=== PATIENT | male | born 2005 | race Caucasian/White ===

== ENCOUNTER 2024-02-20 19:54 | Emergency (ER) | payer SELFPAY ==
[2024-02-20] VITALS (8 sets, daily range): BP systolic 128–149; BP diastolic 62–85; PULSE 80–102; RESP 16–31; TEMP 36.5; O2SAT 96–100
--- NOTE | 2024-02-20 22:51 | ED.ABDPAIN ---
HPI - Abdominal Pain General Chief Complaint: Abdominal Pain Stated Complaint: abd pain Time Seen by Provider: 02/20/24 22:48 History of Present Illness HPI narrative: Patient presents with nausea, diarrhea, chills, and lower abdominal discomfort for the past day, cannot remember what he may have eaten before this other than he was grilling some chicken. No recent travel or exposures that he is aware of, no recent antibiotic course. Related Data Allergies Allergy/AdvReac Type Severity Reaction Status Date / Time No Known Allergies Allergy Verified 02/20/24 20:13 Review of Systems Review of Systems: All systems reviewed & are unremarkable except as noted in HPI and below Exam Narrative: EXAMINATION OF ORGAN SYSTEMS/BODY AREAS: Constitutional: Vital signs per nursing GENERAL:[No acute distress, non-toxic appearing.] HEAD: Normal with no signs of head trauma. EYES: EOMI, conjunctiva normal ENT: Hearing grossly intact LUNGS: Nonlabored breathing. HEART: [Regular rate and rhythm] ABD: [Soft], [nontender to palpation] EXT: Normal range of motion SKIN: [No rashes or lesions.] NEURO: [Alert and oriented x 3. No gross focal sensory or strength deficits.] PSYCH: Normal affect Course Vital Signs Vital signs: Vital Signs Temperature 97.7 F 02/20/24 20:14 Pulse Rate 80 02/20/24 20:14 Respiratory Rate 16 02/20/24 20:14 Blood Pressure 135/76 02/20/24 20:14 Pulse Oximetry 100 02/20/24 20:14 Oxygen Delivery Room Air 02/20/24 20:14 Temperature 97.7 F 02/20/24 20:14 Pulse Rate 80 02/20/24 20:14 Respiratory Rate 16 02/20/24 20:14 Blood Pressure 135/76 02/20/24 20:14 Pulse Oximetry 100 02/20/24 20:14 Oxygen Delivery Room Air 02/20/24 20:14 MDM - Abdominal Pain MDM Narrative Medical decision making narrative: 18-year-old male presents with 1 day of fevers, nausea, diarrhea, abdominal cramping, he is overall well-appearing here, abdomen is soft nontender, no right lower quadrant tenderness. Given this a day consider possible appendicitis however this seems much less likely without any right lower quadrant tenderness or pain. Viral swabs obtained are negative, with this nausea, vomiting, diarrhea, I suspect most likely gastroenteritis, doubt any surgical emergency without tenderness and benign exam and no significant medical history. Medications provided, swabs obtained are negative, and on re-evaluation he states he does feel better, no longer nauseous, I will give him prescriptions for symptoms as well strict return precautions, he and girlfriend at bedside agreeable to this plan. Lab Data Labs: Lab Results 02/20/24 Range/Units 23:25 Influenza A (RT-PCR) Negative (Negative) Influenza B (RT-PCR) Negative (Negative) RSV (RT-PCR) Negative (Negative) SARS-CoV-2 RNA (RT-PCR) Negative (Negative) Discharge Plan Discharge Clinical Impression: Nausea, vomiting, and diarrhea, Abdominal cramping Patient Disposition: Home, Self-Care Condition: Stable Instructions: Antibiotic Form, Acute Nausea and Vomiting (ED), Acute Diarrhea (ED), Abdominal Pain (ED) Additional Instructions: You can continue taking ibuprofen and Tylenol at home for your symptoms, and take the Zofran and loperamide for your nausea and diarrhea, respectively. Make sure that you are keeping well hydrated. If your pain gets worse, especially if you start having pain to your right lower quadrant, or if you start having nausea vomiting and cannot keep anything down, please come back to the emergency room. Prescriptions: New ondansetron 4 mg tablet,disintegrating 4 mg PO Q8H PRN (Reason: nausea and vomiting) Qty: 10 0RF loperamide 2 mg tablet 2 mg PO Q6H PRN (Reason: loose stool) Qty: 14 0RF Follow-up/Referrals: Dixon Connolly MD [Physician] - 2 Days UNKNOWN,DOCTOR [Primary Care Provider] - Stand Alone Forms: Work/School Release IP
[2024-02-20] MEDS: ACETAMINOPHEN 500 MG TABLET 1000 MG PO (23:15)
[2024-02-20] MEDS: LOPERAMIDE HCL 2 MG CAPSULE 4 MG PO (23:15)
[2024-02-20] MEDS: ONDANSETRON HCL ODT 4 MG TABLET PO (23:15)
[2024-02-21] VITALS (7 sets, daily range): BP systolic 124–136; BP diastolic 60–77; PULSE 91–98; RESP 16–26; TEMP 36.6; O2SAT 98–100
[2024-02-21 00:09] LABS: Influenza A QL RT-PCR Negative (Negative); Influenza B QL RT-PCR Negative (Negative); RSV RNA, RT-PCR Negative (Negative); SARS-CoV-2 RNA PCR Negative (Negative)
== END 2024-02-21 00:56 | disposition home or self-care (01) ==
PROVIDERS: Emergency Provider Emergency Medicine
DX: R10.30 Lower abdominal pain, unspecified (principal); R11.2 Nausea with vomiting, unspecified; R19.7 Diarrhea, unspecified; Z20.822 Contact with and (suspected) exposure to COVID-19
CPT/HCPCS: 87637; 99283; A9270

== ENCOUNTER 2024-02-21 23:06 | Emergency (ER) | payer SELFPAY ==
--- NOTE | ~2024-02-21 | CT_ITS ---
CT of the Abdomen and Pelvis: Indication: Abdominal pain Technique: 2.5 mm axial scans were obtained through the abdomen and pelvis following intravenous adm inistration of 100 cc of Omnipaque 350. Dose reduction technique was used on this scan by utilizing a utomated exposure control and iterative reconstruction technique. The dose-length product (DLP) was 3 17.55 mGy-cm. Findings: Scans through the lung bases are unremarkable. The liver, spleen, pancreas, gallbladder, adrenals and kidneys are within normal limits. No evidence of aortic aneurysm. There is mild diffuse large bowel wall thickening including the rectum. No bowel obstruction or free air. Small bowel unremarkable. Appendix unremarkable. Shotty right lower quadrant lymph nodes noted. Images through the pelvis were performed. Urinary bladder unremarkable. No pelvic mass seen. 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 Impression: Diffuse large bowel wall thickening. Correlate for infectious/inflammatory colitis. Shotty right lower quadrant lymph nodes, presumably reactive. Reviewed, dictated and finalized at [facility]. Impression: Diffuse large bowel wall thickening. Correlate for infectious/inflammatory coli tis. Shotty right lower quadrant lymph nodes, presumably reactive.
[2024-02-21 23:24] VITALS: BP 126/70; PULSE 76; RESP 18; TEMP 36.6; O2SAT 100
--- NOTE | 2024-02-21 23:31 | ED.ABDPAIN ---
HPI - Abdominal Pain General Chief Complaint: Abdominal Pain Stated Complaint: abdominal pain, fever Time Seen by Provider: 02/21/24 23:10 Source: patient Mode of arrival: ambulatory Limitations: no limitations History of Present Illness HPI narrative: Patient is a 18 y/o male who presents to the ED with c/o right lower abdominal pain. Patient reports pain began yesterday and was initially present diffusely throughout his lower abdomen. Associated with nausea, vomiting, diarrhea, fevers, T-max 103F. Patient was seen in the ED yesterday for these symptoms, had negative viral swabs, was diagnosed with gastroenteritis, sent home with Zofran and Imodium. He states today, pain has become more localized to his right lower abdomen, which prompted his return. Reports persistent N/V/D/fevers. He last took ibuprofen 2 hours prior to arrival. Related Data Allergies Allergy/AdvReac Type Severity Reaction Status Date / Time No Known Allergies Allergy Verified 02/21/24 23:27 Review of Systems Review of Systems: All systems reviewed & are unremarkable except as noted in HPI. All systems reviewed & are unremarkable except as noted in HPI and below Exam Narrative: GENERAL: Well appearing, thin, non-toxic, in no acute distress. HEAD: Normocephalic, atraumatic. RESPIRATORY: Airway patent, respirations nonlabored. Clear to auscultation bilaterally, no rales, rhonchi, wheezing. CARDIOVASCULAR: Regular rate and rhythm without murmurs, rubs, or gallops. ABDOMINAL: Soft, mild tenderness in midline lower abdomen, left lower quadrant. No significant RLQ tenderness. Nondistended. Normoactive BS. MUSCULOSKELETAL: Moves all extremities. No gross deformities. SKIN: Warm, dry, normal color. NEURO: A&O X3. Speech clear. Cranial nerves II-XII grossly intact. Steady gait. No ataxic movements. PSYCHIATRIC: Appropriate mood and affect. Normal interaction. Course Vital Signs Vital signs: Vital Signs Temperature 97.8 F 02/21/24 23:24 Pulse Rate 76 02/21/24 23:24 Respiratory Rate 18 02/21/24 23:24 Blood Pressure 126/70 02/21/24 23:24 Pulse Oximetry 100 02/21/24 23:24 Oxygen Delivery Room Air 02/21/24 23:24 Temperature 97.8 F 02/21/24 23:37 Pulse Rate 76 02/21/24 23:37 Respiratory Rate 18 02/21/24 23:37 Blood Pressure 126/70 02/21/24 23:37 Pulse Oximetry 100 02/21/24 23:37 Oxygen Delivery Room Air 02/21/24 23:24 MDM - Abdominal Pain MDM Narrative Medical decision making narrative: Patient presented to ED with lower abdominal pain, seen in the ED yesterday, diagnosed with gastroenteritis. Had negative viral swabs. Vital signs are stable upon arrival today. Patient is afebrile here today. He did take Tylenol prior to arrival. CBC without leukocytosis. CMP with sodium of 133. Creatinine of 1.4. No records to compare to. Fluids ongoing. Total bilirubin elevated to 2.3. Again no records to compare to. Remainder of LFTs are within normal limits. Lipase within normal range. UA with 1+ ketones, no signs of infection. CT abd/pelvis obtained showed evidence of colitis. This is consistent with patient's clinical picture. Given recent fevers in the setting of colitis, will treat as infectious picture. Patient started on Augmentin. Given 1st dose in the ED. Will also discharge with Bentyl for home use. Advised patient have close follow-up with PCP for further evaluation. He was given return precautions. Discharged in stable condition. Medical Records Attestation: I reviewed the patient's medical records. Lab Data Attestation: I reviewed the patient's lab results. 02/21/24 23:32 02/21/24 23:32 Labs: Lab Results 02/21/24 Range/Units 23:32 WBC 6.0 (4.5-10.0) K/mm3 RBC 4.96 (4.6-6.20) M/mm3 Hgb 14.6 (14.0-18.0) g/dL Hct 42.2 (42.0-52.0) % MCV 85.1 (80-100) fl MCH 29.4 (26-34) pg MCHC 34.6 (32-36) g/dl RDW 12.0 (11.5-14.5) % Plt Count
[2024-02-21 23:37] VITALS: BP 126/70; PULSE 76; RESP 18; TEMP 36.6; O2SAT 100
[2024-02-21 23:43] LABS: Basophils Percent Auto 0.3 % (0.2-1.2); Eosinophils Absolute Auto 0.1 K/mm3 (0-0.3); Eosinophils Percent Auto 1.8 % (0-4.4); Hematocrit 42.2 % (42.0-52.0); Hemoglobin 14.6 g/dL (14.0-18.0); Immature Granulocyte Absolute 0.01 K/mm3 (0.00-0.031); Immature Granulocyte Percent A 0.2 % (0-0.5); Lymphocytes Absolute Auto 1.19 K/mm3 (0.9-3.2); Lymphocytes Percent Auto 19.7 % (18.3-44.2); Mean Corpuscular HGB Conc 34.6 g/dl (32-36); Mean Corpuscular Hemoglobin 29.4 pg (26-34); Mean Corpuscular Volume 85.1 fl (80-100); Mean Platelet Volume 9.4 fl (7.4-10.4); Monocytes Absolute Auto 0.6 K/mm3 (0.1-0.6); Neutrophils Absolute Auto 4.1 K/mm3 (1.3-6.7); Platelet Count Result 133 k/mm3 (150-375); Red Blood Count 4.96 M/mm3 (4.6-6.20)
[2024-02-21 23:50] LABS: Alanine Aminotransferase 21 U/L (6-50); Albumin Level 4.1 g/dL (3.5-5.1); Alkaline Phosphatase 98 U/L (38-126); Anion Gap 10 mmol/L (4-12); Aspartate Amino Transferase 28 U/L (17-59); Bilirubin,Total 2.3 mg/dL (0.2-1.3); Blood Urea Nitrogen 14 mg/dL (9-20); Carbon Dioxide 27 mmol/L (22-30); Chloride 96 mmol/L (98-107); Estimated CRCL calculation 85 ml/min; Estimated Glomerular Filt Rate > 60; Glucose 138 mg/dL (65-110); Lipase 27 U/L (23-300); Potassium 3.9 mmol/L (3.4-5.0); Sodium 133 mmol/L (137-145)
[2024-02-21 23:56] LABS: Add Urine Microscopic? YES; Appearance Urine Clear (Clear); Bacteria Urine None Seen /hpf; Bilirubin Urine 1+ (Negative); Blood Urine Negative (Negative); Color Urine Dark Yellow (Yellow); Glucose Urine UA Negative (Negative); Ketones Urine 1+ mg/dL (Negative); Leukocyte Esterase Ur Negative LEU/UL (Negative); Nitrate Urine Negative (Negative); Protein Urine 1+ mg/dL (Negative); RBC Urine 0-2 /hpf (0-2); Specific Grav Ur 1.029 (1.001-1.035); Squamous Epithelial Cell Urine Occasional /hpf (Few); WBC Urine 0-5 /hpf (0-3); pH Urine 5.5 (5.0-9.0)
[2024-02-22] MEDS: LOPERAMIDE HCL 2 MG CAPSULE 4 MG PO (00:09)
[2024-02-22 01:50] VITALS: BP 124/76; PULSE 80; RESP 20; O2SAT 99
== END 2024-02-22 01:50 | disposition home or self-care (01) ==
PROVIDERS: Emergency Provider Physician Assistant
DX: K52.9 Noninfective gastroenteritis and colitis, unspecified (principal)
CPT/HCPCS: 36415; 74177; 80053; 81001; 83690; 85025; 85055; 99284; A9270; Q9967

== ENCOUNTER 2024-04-21 16:08 | Emergency (ER) | payer OTHER, SELFPAY ==
--- NOTE | ~2024-04-21 | US_ITS ---
EXAMINATION: US scrotum doppler DATE: 04/21/2024 16:34 INDICATION: r/o torsion, pain right greater than left. TECHNIQUE: Grayscale and Doppler ultrasound images of the testes were obtained. COMPARISON: None. FINDINGS: The right testis measures 5.4 x 3.0 x 3.4 cm. The left testis measures 5.1 x 2.7 x 2.8 cm. No testicular mass. There is normal vascular flow to both testes. The right epididymis is normal with normal vascular flow. The left epididymis is normal with normal vascular flow. There is no varicocel e or hydrocele. IMPRESSION: Normal scrotal ultrasound findings. Reviewed, dictated and finalized at location [facility]
[2024-04-21 16:35] VITALS: BP 131/60; PULSE 75; RESP 16; TEMP 36.4; O2SAT 99
--- NOTE | 2024-04-21 17:22 | ED.MALEGU ---
HPI - Male Genitourinary General Chief complaint: Urogenital-Male Stated complaint: TESTICULAR PAIN Time Seen by Provider: 04/21/24 17:20 Source: patient Mode of arrival: ambulatory Limitations: no limitations History of Present Illness HPI Narrative: this is a 18-year-old male who presents to the ED with chief complaint of right-sided testicular pain beginning yesterday. patient denies trauma, injury or concerns for STD. Patient reports he does regular weightlifting but has not noticed any significant pain during weightlifting recently. The pain started yesterday evening while sitting down and was not associated with physical exertion. Denies any testicular swelling or lesions. Denies discharge, hematuria, dysuria. Related Data Allergies Allergy/AdvReac Type Severity Reaction Status Date / Time No Known Allergies Allergy Verified 02/21/24 23:27 Review of Systems Review of Systems: All systems as dictated in HPI Exam Narrative: GENERAL: Well-appearing, well-nourished, and in no acute distress. HEAD: Normocephalic, atraumatic. EYES: PERRLA and EOMI. ENT: Nares clear, no rhinorrhea or epistaxis. Mucous membranes moist. Oropharynx without tonsillar hypertrophy exudate or other lesions. NECK: Supple. No adenopathy or masses. CHEST: No respiratory distress. Clear to auscultation. No wheezes rales or rhonchi HEART: Regular rate and rhythm. No murmur heard. Normal peripheral pulses. ABDOMEN: Soft, nontender, nondistended, normal active bowel sounds. MSK: Normal range of motion. No edema. SKIN: Warm, dry, no rash. NEURO: Alert and oriented x4. No focal deficits. PSYCH: Normal mood and affect. : Questionable inguinal hernia palpated at the level of the groin just superior to right testicle and lateral to penis. Able to be easily reduced. No testicular swelling or tenderness. no external lesions MDM - Male Genitourinary MDM Narrative Medical decision making narrative: This is a 18-year-old male who presents to the ED for chief complaint of right testicular pain beginning last night. No injury. Vitals are normal. Exam shows questionable inguinal hernia on the right side. No testicular swelling or lesions. testicular ultrasound: The right testis measures 5.4 x 3.0 x 3.4 cm. The left testis measures 5.1 x 2.7 x 2.8 cm. No testicular mass. There is normal vascular flow to both testes. The right epididymis is normal with normal vascular flow. The left epididymis is normal with normal vascular flow. There is no varicocele or hydrocele. Presentation most likely consistent with inguinal hernia. Will treat supportively with surgery referral if he continues to be symptomatic. Patient will be discharged in stable condition. Supportive measures discussed and return precautions given. Patient is understanding and agreeable with plan for discharge with PCP follow-up. Discharge Plan Discharge Clinical Impression: Inguinal hernia Patient Disposition: Home, Self-Care Condition: Stable Instructions: Antibiotic Form Additional Instructions: your exam and imaging today are reassuring. There is a possible inguinal hernia on the right side. Please take Advil every 6 hours as needed for inflammation/pain. Follow-up with general surgeon if this continues to be problematic. If you have any new or worsening symptoms please return to the ER for further evaluation. Prescriptions: No Action ondansetron 4 mg tablet,disintegrating 4 mg PO Q8H PRN (Reason: nausea and vomiting) Qty: 10 0RF loperamide 2 mg tablet 2 mg PO Q6H PRN (Reason: loose stool) Qty: 14 0RF amoxicillin-pot clavulanate 875-125 mg tablet 1 tablet PO Q12H 7 Days Qty: 14 0RF dicyclomine 20 mg tablet 20 mg PO TID PRN (Reason: Abdominal Discomfort) Qty: 15 0RF Follow-up/Referrals: All Blackmon MD [Physician] - UNKNOWN,DOCTOR [Non-Staff] - Time of Disposition: 17:58
== END 2024-04-21 18:11 | disposition home or self-care (01) ==
PROVIDERS: Emergency Provider Physician Assistant
DX: K40.90 Unilateral inguinal hernia, without obstruction or gangrene, not specified as recurrent (principal)
CPT/HCPCS: 76870; 93976; 99284